=== PATIENT | male | born 1935 | race Caucasian/White ===

== ENCOUNTER 2017-06-10 06:17 | Emergency (ER) | payer OTHER ==
--- NOTE | 2017-06-10 06:35 | EDPHY ---
H & P Stated Complaint: pt states hasnt been able to void since midnight. seeing URO Time Seen by Provider: 06/10/17 06:33 HPI/ROS: Chief Complaint: Unable to urinate HPI: 81-year-old male with a history of prostate disease, recently had instrumentation by Dr. dumont about 2 weeks ago with dilatation his urethra. Patient has been unable to void since midnight. Has the sense of increasing abdominal pain and need to urinate. No recent fevers or chills. No nausea or vomiting. No chest pain or shortness of breath. ROS: 10 point Review of Systems is negative except as noted in the HPI. PMH: Benign prostate hypertrophy, glaucoma, hypertension Social History: No smoking, rare alcohol, no recreational drug use Family History: non-contributory Physical Exam: Gen: Awake, Alert, No Distress HEENT: Nose: no rhinorrhea Eyes: PERRLA, EOMI Mouth: Moist mucosa Neck: Supple, no JVD Chest: nontender, lungs clear to auscultation Heart: S1, S2 normal, no murmur Abd: Soft, mild distention with palpable urinary bladder, no guarding Back: no CVA tenderness, no midline tenderness Ext: no edema, non-tender Skin: no rash Neuro: CN II-XII intact, Sensation grossly intact, Strength 5/5 in bilateral upper and lower extremities - Personal History Current Tetanus/Diphtheria Vaccine: Unsure Current Tetanus Diphtheria and Acellular Pertussis (TDAP): Unsure - Medical/Surgical History Hx Asthma: No Hx Chronic Respiratory Disease: No Hx Diabetes: No Hx Cardiac Disease: No Hx Renal Disease: No Hx Cirrhosis: No Hx Alcoholism: No Hx HIV/AIDS: No Hx Splenectomy or Spleen Trauma: No Other PMH: HTN - Social History Smoking Status: Never smoked Constitutional: Initial Vital Signs Temperature (C) 37.6 C 06/10/17 06:21 Heart Rate 72 06/10/17 06:21 Respiratory Rate 18 06/10/17 06:21 Blood Pressure 176/94 H 06/10/17 06:21 O2 Sat (%) 96 06/10/17 06:21 O2 Delivery Mode Room Air Allergies/Adverse Reactions: No Known Allergies Allergy (Unverified 02/16/12 20:16) Home Medications: Medication Instructions Recorded Aspirin [Aspirin 81mg (OTC)] 81 mg PO HS 02/16/12 Lisinopril [Prinivil] 5 mg PO HS 02/16/12 Rosuvastatin Calcium [Crestor 40mg 40 mg PO HS 02/16/12 (RX)] Alphagan P 0.15% 2 drop EACHEYE BID 01/30/16 CRANBERRY PO DAILY 01/30/16 Cosopt Eye Drops 2 drop EACHEYE BID 01/30/16 Fish Oil PO DAILY 01/30/16 Multivitamin PO DAILY 01/30/16 Niacin PO DAILY 01/30/16 Probiotic PO DAILY 01/30/16 Vitamin D3 PO DAILY 01/30/16 Xalatan 0.005% (RX) 2 drops EACHEYE HS 01/30/16 Medical Decision Making ED Course/Re-evaluation: Bladder scanner shows a bladder volume of 720 mL. Montiel catheter placed by nursing staff. Urine sent for urinalysis. Plan will be to leave the catheter in place and have the patient follow up with Dr. Lambert in 2-3 days. Departure - Departure Disposition: Home, Routine, Self-Care Clinical Impression: Acute retention of urine Condition: Good Instructions: Urinary Retention in Men (ED), Montiel Catheter Placement and Care (ED) Additional Instructions: Leave the Montiel catheter in place until your seen by Urology in 2-3 days. Return to the emergency department for increasing pain, fevers, chills, nausea, vomiting, or any other concerns. Referrals: CESAR THURSTON [Primary Care Provider] - As per Instructions
[2017-06-10] MEDS ORDERED: LIDOCAINE 2% JELLY 20 ML (UROJECT) UR ONE (06:42)
[2017-06-10] MEDS ORDERED: LIDOCAINE 2% JELLY 20 ML (UROJECT) ONE (06:42)
[2017-06-10 08:13] VITALS: BP 147/89; PULSE 70; RESP 16; TEMP 98.2; O2SAT 92
== END 2017-06-10 08:13 | disposition home or self-care (01) ==
PROC: 0T9B70Z Drainage of Bladder with Drainage Device, Via Natural or Artificial Opening (ICD-10-PCS; principal; 2017-06-10)

== ENCOUNTER 2017-06-15 02:04 | Emergency (ER) | payer OTHER ==
--- NOTE | 2017-06-15 02:11 | EDPHY ---
H & P HPI/ROS: HPI CHIEF COMPLAINT: Montiel catheter problem. HISTORY OF PRESENT ILLNESS: Patient is a 81-year-old male, significant past medical history free BPH, hypertension, glaucoma, recently here in the emergency room and had a Montiel catheter placed for acute urinary retention. He presents emergency room as he states that his Montiel catheter is not working. Patient reports to me that he emptied his Montiel catheter around 10 30 this evening. Rather large amount urine out of the bag and now he has noticed that the bag is not filled up much urine. Denies any abdominal distention abdominal pain. Denies back pain. Of note upon arrival and inspection of the Montiel catheter the last banding that straps the bag to his leg is strapped over top the bag and blocking the drainage tube. This may be the cause of it not draining urine. Additionally patient has told me that he saw Dr. Lambert today. Placed on Flomax and on Wednesday will see him to have Montiel removed. Past Medical History: BPH. Hypertension, glaucoma, recent ER visit for unable to void. Past Surgical History: Urethral stricture dilatation Social History: Denies daily use of drugs alcohol tobacco products. Family History: Noncontributory ROS REVIEW OF SYSTEMS: A comprehensive 10 point review of systems is otherwise negative aside from elements mentioned in the history of present illness. Exam Constitutional appears well nontoxic, triage nursing summary reviewed, vital signs reviewed, awake/alert. Eyes normal conjunctivae and sclera, EOMI, PERRLA. HENT normal inspection, atraumatic, moist mucus membranes, no epistaxis, neck supple/ no meningismus, no raccoon eyes. Respiratory clear to auscultation bilaterally, normal breath sounds, no respiratory distress, no wheezing. Cardiovascular rate normal, regular rhythm, no murmur, no edema, distal pulses normal. Gastrointestinal soft, non-tender, no rebound, no guarding, normal bowel sounds, no distension, no pulsatile mass. Genitourinary Montiel in place. Elastic banding obstructing the outflow tract of the Montiel bag. Musculoskeletal no midline vertebral tenderness, full range of motion, no calf swelling, no tenderness of extremities, no meningismus, good pulses, neurovascularly intact. Skin pink, warm, & dry, no rash, skin atraumatic. Neurologic awake, alert and oriented x 3, AAOx3, moves all 4 extremities equally, motor intact, sensory intact, CN II-XII intact, normal cerebellar, normal vision, normal speech. Psychiatric normal mood/affect. Heme/Lymph/Immune no lymphadenopathy. Differential Diagnosis: Includes but is not limited to in a particular order Montiel catheter clogged, Montiel catheter dislodgement, renal failure Medical Decision Making: Plan for this patient flush Montiel catheter. Bladder scan. Re-evaluation: 0304: Montiel catheter/. Debris was removed. Montiel catheter draining appropriately. Tierra CARTWRIGHT. Source: Patient - Medical/Surgical History Hx Asthma: No Hx Chronic Respiratory Disease: No Hx Diabetes: No Hx Cardiac Disease: No Hx Renal Disease: No Hx Cirrhosis: No Hx Alcoholism: No Hx HIV/AIDS: No Hx Splenectomy or Spleen Trauma: No Other PMH: HTN - Social History Smoking Status: Never smoked Constitutional: Initial Vital Signs Temperature (C) 36.5 C 06/15/17 02:13 Heart Rate 88 06/15/17 02:13 Respiratory Rate 18 06/15/17 02:13 Blood Pressure 162/101 H 06/15/17 02:13 O2 Sat (%) 92 06/15/17 02:13 O2 Delivery Mode Room Air Allergies/Adverse Reactions: No Known Allergies Allergy (Unverified 06/15/17 02:19) Home Medications: Medication Instructions Recorded Aspirin [Aspirin 81mg (OTC)] 81 mg PO HS 02/16/12 Lisinopril [Prinivil] 5 mg PO HS 02/16/12 Rosuvastatin Calcium [Crestor 40mg 40 mg PO HS 02/16/12 (RX)] Alphagan P 0.15% 2 drop EACHEYE BID 01/30/16 CRANBERRY PO DAILY 01/30/16 Cosopt Eye Drops 2 drop EACHEYE BID 01/30/16 Fish Oil PO DAILY 01/30/16 Multivitamin PO DAILY 01/30/16 Niacin PO DAILY 01/30/16 Probiotic PO DAILY 01/30/16 Vitamin D3 PO DAILY 01/30/16 Xalatan 0.005% (RX) 2 drops EACHEYE HS 01/30/16 Tamsulosin HCl [Flomax 0.4 MG (*)] 0.4 mg PO DAILY 06/15/17 Departure - Departure Disposition: Home, Routine, Self-Care Clinical Impression: Obstructed Montiel catheter Qualifiers: Encounter type: initial encounter Qualified Code(s): T83.091A - Other mechanical complication of indwelling urethral catheter, initial encounter Condition: Good Instructions: Montiel Catheter Placement and Care (ED) Additional Instructions: 1. Return to the emergency room if develops worsening symptoms questions or concerns. Referrals: CESAR THURSTON [Primary Care Provider] - As per Instructions
[2017-06-15 02:19] VITALS: TEMP 97.7
[2017-06-15 03:21] VITALS: BP 141/88; PULSE 82; RESP 16; O2SAT 96
== END 2017-06-15 03:20 | disposition home or self-care (01) ==
DX: T83.091A Other mechanical complication of indwelling urethral catheter, initial encounter (principal); I10 Essential (primary) hypertension; Z79.82 Long term (current) use of aspirin; Y82.8 Other medical devices associated with adverse incidents

== ENCOUNTER 2017-06-18 02:48 | Emergency (ER) | payer OTHER ==
--- NOTE | 2017-06-18 02:49 | EDPHY ---
H & P HPI/ROS: HPI CHIEF COMPLAINT: Problems with Montiel catheter, not draining HISTORY OF PRESENT ILLNESS: Patient very pleasant 81-year-old male indwelling Montiel catheter. Was recently seen here in the emergency room for obstructed Montiel catheter. He has a rather small catheter placed. It did not drain this evening. He denies any back pain of the abdominal pain vomiting or fever. Past Medical History: BPH, hypertension, glaucoma, Montiel catheter obstruction Past Surgical History: No recent surgery Social History: Denies daily use of drugs alcohol tobacco products. Family History: Noncontributory ROS REVIEW OF SYSTEMS: A comprehensive 10 point review of systems is otherwise negative aside from elements mentioned in the history of present illness. Exam Constitutional triage nursing summary reviewed, vital signs reviewed, awake/ alert. Eyes normal conjunctivae and sclera, EOMI, PERRLA. HENT normal inspection, atraumatic, moist mucus membranes, no epistaxis, neck supple/ no meningismus, no raccoon eyes. Respiratory clear to auscultation bilaterally, normal breath sounds, no respiratory distress, no wheezing. Cardiovascular rate normal, regular rhythm, no murmur, no edema, distal pulses normal. Gastrointestinal soft, non-tender, no rebound, no guarding, normal bowel sounds, no distension, no pulsatile mass. Genitourinary no CVA tenderness. Indwelling Montiel catheter. Musculoskeletal no midline vertebral tenderness, full range of motion, no calf swelling, no tenderness of extremities, no meningismus, good pulses, neurovascularly intact. Skin pink, warm, & dry, no rash, skin atraumatic. Neurologic awake, alert and oriented x 3, AAOx3, moves all 4 extremities equally, motor intact, sensory intact, CN II-XII intact, normal cerebellar, normal vision, normal speech. Psychiatric normal mood/affect. Heme/Lymph/Immune no lymphadenopathy. Differential Diagnosis: Includes but is not limited to in a particular order, obstructed Montiel catheter, dislodgement, sediment causing obstruction, UTI Medical Decision Making: Plan for this patient flush Montiel catheter bladder scan. Send UA. If unable to get urinary catheter unobstructed will place a new Montiel catheter. Re-evaluation: 0310AM: Ayaan CARTWRIGHT has flushes patient's catheter removed sediment. Now catheter is draining. Abdomen soft nontender. Will send UA. Patient understands to follow up with his urologist. Urinalysis reviewed. Will send for urine culture placed on Keflex. Follow up with Urology. Source: Patient - Medical/Surgical History Hx Asthma: No Hx Chronic Respiratory Disease: No Hx Diabetes: No Hx Cardiac Disease: No Hx Renal Disease: No Hx Cirrhosis: No Hx Alcoholism: No Hx HIV/AIDS: No Hx Splenectomy or Spleen Trauma: No Other PMH: HTN - Social History Smoking Status: Never smoked Constitutional: Initial Vital Signs Temperature (C) 36.6 C 06/18/17 02:49 Heart Rate 90 06/18/17 02:49 Respiratory Rate 18 06/18/17 02:49 Blood Pressure 156/95 H 06/18/17 02:49 O2 Sat (%) 93 06/18/17 02:49 O2 Delivery Mode Room Air Allergies/Adverse Reactions: No Known Allergies Allergy (Verified 06/18/17 02:52) Home Medications: Medication Instructions Recorded Aspirin [Aspirin 81mg (OTC)] 81 mg PO HS 02/16/12 Lisinopril [Prinivil] 5 mg PO HS 02/16/12 Rosuvastatin Calcium [Crestor 40mg 40 mg PO HS 02/16/12 (RX)] Alphagan P 0.15% 2 drop EACHEYE BID 01/30/16 CRANBERRY PO DAILY 01/30/16 Cosopt Eye Drops 2 drop EACHEYE BID 01/30/16 Fish Oil PO DAILY 01/30/16 Multivitamin PO DAILY 01/30/16 Niacin PO DAILY 01/30/16 Probiotic PO DAILY 01/30/16 Vitamin D3 PO DAILY 01/30/16 Xalatan 0.005% (RX) 2 drops EACHEYE HS 01/30/16 Tamsulosin HCl [Flomax 0.4 MG (*)] 0.4 mg PO DAILY 06/15/17 Cephalexin [Keflex] 500 mg PO Q6H #28 cap 06/18/17 Medical Decision Making - Data Points Laboratory Results: 06/18/17 03:12 Urine Color YELLOW Urine Appearance HAZY Urine pH 5.0 (5.0-7.5) Ur Specific [place] 1.013 (1.002-1.030) Urine Protein 1+ H (NEGATIVE) Urine Ketones NEGATIVE (NEGATIVE) Urine Blood 3+ H (NEGATIVE) Urine Nitrate NEGATIVE (NEGATIVE) Urine Bilirubin NEGATIVE (NEGATIVE) Urine Urobilinogen NEGATIVE EU EU (0.2-1.0) Ur Leukocyte Esterase TRACE H (NEGATIVE) Urine RBC 50-182 /hpf H /hpf (0-3) Urine WBC 10-15 /hpf H /hpf (0-3) Ur Epithelial Cells NONE SEEN /lpf /lpf (NONE-1+) Urine Mucus TRACE /lpf /lpf (NONE-1+) Urine Glucose NEGATIVE (NEGATIVE) Departure - Departure Disposition: Home, Routine, Self-Care Clinical Impression: Obstructed Montiel catheter Qualifiers: Encounter type: initial encounter Qualified Code(s): T83.091A - Other mechanical complication of indwelling urethral catheter, initial encounter Condition: Good Instructions: Montiel Catheter Placement and Care (ED) Additional Instructions: 1. Drink lots of fluids stay well-hydrated. 2. Follow up with Urology. 3. Return to the emergency room if you have any worsening symptoms questions or concerns. Referrals: CESAR THURSTON [Primary Care Provider] - As per Instructions Lyn Lambert MD [Medical Doctor] - As per Instructions Prescriptions: Cephalexin [Keflex] 500 mg PO Q6H #28 cap
[2017-06-18 02:54] VITALS: TEMP 97.9
[2017-06-18 03:50] VITALS: BP 144/76; PULSE 74; RESP 169; O2SAT 92
== END 2017-06-18 03:49 | disposition home or self-care (01) ==
PROC: 0T9B70Z Drainage of Bladder with Drainage Device, Via Natural or Artificial Opening (ICD-10-PCS; principal; 2017-06-18)
DX: T83.091A Other mechanical complication of indwelling urethral catheter, initial encounter (principal); I10 Essential (primary) hypertension; Z79.82 Long term (current) use of aspirin; Y73.2 Prosthetic and other implants, materials and accessory gastroenterology and urology devices associated with adverse incidents